=== PATIENT | female | born 1995 | race Caucasian/White ===

== ENCOUNTER → 2017-07-05 16:52 | Observation (INO) ==
[2017-07-05 13:51] LABS: Bilirubin,Urine Negative (Negative); Blood,Urine Negative (Negative); Clarity,Urine Cloudy (Clear); Color,Urine Yellow (Yellow); Glucose,Urine (UA) Normal (Normal); Ketones,Urine Negative (Negative); Leukocyte Esterase,Urine Moderate (Negative); Nitrite,Urine Negative (Negative); PH,Urine 6.5 pH Units (5.0-8.0); Protein,Urine Negative (Neg-Trace); Specific Gravity,Urine > 1.030 (1.010-1.025); Urobilinogen,Urine Normal (Normal)
[2017-07-05 13:52] LABS: Bacteria,Urine None Seen per hpf (None-Few); Hyaline Casts,Urine None Seen per lpf (None-Few); Squamous Epithelial Cell,Urine Many per lpf (None-Few); WBC,Urine 15-30 per hpf (0-3)
--- NOTE | 2017-07-05 14:24 | OB/GYN Progress Note ---
Date of Encounter: 07/05/17 Time of Encounter: 14:18 - Assessment and Plan (1) 30 weeks gestation of Current Visit: Yes Status: Acute (2) Vaginal irritation Current Visit: Yes Status: Acute Await vaginosis panel and GC cultures. Anticipate discharge home with treatment. Precautions given. (3) Pain of round ligament affecting , antepartum Current Visit: Yes Status: Acute Comfort measures and discharge home with precautions. Subjective - Subjective Interval history: 22 year-old presenting at 30 weeks with c/o intermittent, bilateral, sharp , lower abdominal pains and vaginal irritation. She was treated for a yeast infection 2 weeks ago with diflucan that did not resolve her symptoms. She denies contractions, leaking, bleeding, urinary sx, or other complaints. Good FM. Antepartum ROS: movement normal, no loss of fluid, no vaginal bleeding, no contractions Objective - Vital Signs Vital Signs: Vital Signs Temp Resp 07/05/17 13:48 98.1 F 14 Intake and Output 07/04/17 07/05/17 07/05/17 23:59 07:59 15:59 Other: Weight 73.8 kg Patient Weight 07/05/17 23:59 Weight 73.8 kg - Exam FHR: category 1 FHR comments: NST reactive Auscultation: bilateral: normal Abdomen: Present: soft, gravid, tenderness (tenderness in bilateral lower quadrants) Uterus: Present: normal. Absent: tenderness - Labs Labs: Abnormal lab results Urine Clarity Cloudy (Clear) A 07/05/17 13:38 Ur Specific [place] > 1.030 (1.010-1.025) H 07/05/17 13:38 Ur Leukocyte Esterase Moderate (Negative) H 07/05/17 13:38 Urine Microscopic RBC 5-15 per hpf (0-3) H 07/05/17 13:38 Urine Microscopic WBC 15-30 per hpf (0-3) H 07/05/17 13:38 Ur Squamous Epith Cells Many per lpf (None-Few) H 07/05/17 13:38 Ur Culture Indicated? NO. (NO) A 07/05/17 13:38
[2017-07-05 14:26] LABS: Amphetamine Screen,Urine Negative ng/mL (Cutoff=1000); Barbiturate Screen,Urine Negative ng/mL (Cutoff=200); Benzodiazepines Screen,Urine Negative ng/mL (Cutoff=200); Cannabinoid Screen,Urine Negative ng/mL (Cutoff = 50); Cocaine Screen,Urine Negative ng/mL (Cutoff= 300); Opiate Screen,Urine Negative ng/mL (Cutoff=300); Phencyclidine Screen,Urine Negative ng/mL (Cutoff=25)
[2017-07-05 15:20] LABS: Candida DNA Not Detected (Not Detect); Gardnerella DNA Not Detected (Not Detect); Trichomonas DNA Not Detected (Not Detect)
== END | disposition home or self-care (01) ==
LOC: 1NENULAB
PROVIDERS: ADMIT Obstetrics & Gynecology; ATTEND Obstetrics & Gynecology

== ENCOUNTER → 2017-09-08 05:00 | Observation (INO) ==
[2017-09-08 00:50] LABS: Bilirubin,Urine Negative (Negative); Blood,Urine Negative (Negative); Clarity,Urine Clear (Clear); Color,Urine Yellow (Yellow); Glucose,Urine (UA) Normal (Normal); Ketones,Urine Trace mg/dL (Negative); Leukocyte Esterase,Urine Trace (Negative); Nitrite,Urine Negative (Negative); Protein,Urine Negative (Neg-Trace); Specific Gravity,Urine 1.026 (1.010-1.025); Urobilinogen,Urine Normal (Normal)
[2017-09-08 00:56] LABS: Bacteria,Urine None Seen per hpf (None-Few); Hyaline Casts,Urine None Seen per lpf (None-Few); RBC,Urine 15-30 per hpf (0-3); Squamous Epithelial Cell,Urine Many per lpf (None-Few)
[2017-09-08 00:58] LABS: Amphetamine Screen,Urine Negative ng/mL (Cutoff=1000); Barbiturate Screen,Urine Negative ng/mL (Cutoff=200); Benzodiazepines Screen,Urine Negative ng/mL (Cutoff=200); Cannabinoid Screen,Urine Negative ng/mL (Cutoff = 50); Cocaine Screen,Urine Negative ng/mL (Cutoff= 300); Opiate Screen,Urine Negative ng/mL (Cutoff=300); Phencyclidine Screen,Urine Negative ng/mL (Cutoff=25)
--- NOTE | 2017-09-08 06:58 | OB/GYN Progress Note ---
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 Discharged home with labor precautions Follow up with primary OB within 1 week and PRN (2) NST (non-stress test) reactive Status: Acute Subjective - Subjective Principal diagnosis: Labor Evaluation Antepartum ROS: movement normal, contractions, no loss of fluid, no vaginal bleeding Objective - Vital Signs Vital Signs: Intake and Output 09/07/17 09/07/17 09/08/17 15:59 23:59 07:59 Other: Weight 75.2 kg Patient Weight 09/08/17 23:59 Weight 75.2 kg - Exam FHR: auscultation normal, category 1 (Baseline 130) - Labs Labs: Abnormal lab results Ur Specific [place] 1.026 (1.010-1.025) H 09/08/17 00:20 Urine Ketones Trace mg/dL (Negative) H 09/08/17 00:20 Ur Leukocyte Esterase Trace (Negative) H 09/08/17 00:20 Urine Microscopic RBC 15-30 per hpf (0-3) H 09/08/17 00:20 Urine Microscopic WBC 3-5 per hpf (0-3) H 09/08/17 00:20 Ur Squamous Epith Cells Many per lpf (None-Few) H 09/08/17 00:20 Ur Culture Indicated? NO. (NO) A 09/08/17 00:20
== END | disposition home or self-care (01) ==
LOC: 1NENULAB
PROVIDERS: ADMIT Advanced Practice Midwife; ATTEND Advanced Practice Midwife

== ENCOUNTER 2021-10-17 04:43 | Inpatient (IN) ==
[~2021-10-17 04:43] MED LIST: Famotidine 20 MG/2 ML VIAL IVP PRN; Metoclopramide 10 MG/2 ML VIAL IVP PRN; Naloxone 0.4 MG/ML INJ IVP PRN; Ondansetron 4 MG/2 ML VIAL IVP PRN
[2021-10-17] MEDS ORDERED: Penicillin G Potassium 5,000,000 UNIT in 0.9 % Sodium Chloride Mini Bag 100 ML IVPB ONE (04:44)
[2021-10-17] MEDS ORDERED: Ringers Solution, Lactated 1,000 ML IVC SCH (04:45)
[2021-10-17 05:58] LABS: Basophils # 0.1 K/mcL (0.0-0.2); Basophils % 0.7 %; Eosinophils # 0.3 K/mcL (0.0-0.6); Eosinophils % 1.9 %; Hemoglobin 10.8 g/dL (11.5-15.4); Immature Granulocytes % 2.3 % (0-4); Lymphocytes # 1.9 K/mcL (0.6-4.6); Lymphocytes % 13.1 %; Mean Corpuscular HGB Conc 31.8 g/dL (31.6-35.5); Mean Corpuscular Hemoglobin 27.1 pg (28.0-33.3); Mean Corpuscular Volume 85.2 fL (83.0-100.0); Mean Platelet Volume 9.1 fL (9.4-12.4); Monocytes # 1.1 K/mcL (0.0-1.3); Monocytes % 7.4 %; Neutrophils # 10.9 K/mcL (1.6-8.9); Platelet Count 273 K/mcL (140-400); Red Blood Count 3.99 M/mcL (3.82-4.97); Red Cell Distribution Width 12.4 % (11.5-14.5); Segmented Neutrophils % 74.6 %; White Blood Count 14.5 K/mcL (4.3-11.1)
[2021-10-17] MEDS ORDERED: EPHEDrine 50 MG/ML VIAL IVP PRN (06:42)
[2021-10-17] MEDS ORDERED: Epidural Premix (fent/bupiv) 110 ML EP SCH (06:45)
[2021-10-17 08:42] LABS: Amphetamine Screen,Urine Negative ng/mL (Cutoff=1000); Barbiturate Screen,Urine Negative ng/mL (Cutoff=200); Benzodiazepines Screen,Urine Negative ng/mL (Cutoff=200); Cannabinoid Screen,Urine Negative ng/mL (Cutoff = 50); Cocaine Screen,Urine Negative ng/mL (Cutoff= 300); Opiate Screen,Urine Negative ng/mL (Cutoff=300); Phencyclidine Screen,Urine Negative ng/mL (Cutoff=25)
[2021-10-17] MEDS: Penicillin G Potassium 2,500,000 UNIT/105 ML MLS IVPB SCH ×3 (09:41→18:31)
[2021-10-17] MEDS ORDERED: Oxytocin 30 UNIT/503 ML BAG IVC SCH ×2 (11:00→20:33)
[2021-10-17] MEDS: *HR* Nalbuphine 10 MG/ML AMPUL IV PRN ×2 (14:15→16:55)
[2021-10-17] MEDS ORDERED: Lanolin 7 G OINT...G. TP PRN (20:33)
[2021-10-17] MEDS ORDERED: OXYTOCIN/RINGERS LACTATE 10 UNIT/166.6 ML BAG IVC ONE (20:33)
[2021-10-17] MEDS ORDERED: Benzocaine/Menthol 56 GM AEROSOL SPRAY TP PRN (20:33)
[2021-10-17] MEDS: Acetaminophen 325 MG TABLET PO SCH (20:55)
[2021-10-18] MEDS: Ibuprofen 600 MG TABLET PO SCH ×3 (00:30→19:19)
[2021-10-18] MEDS: Acetaminophen 325 MG TABLET PO SCH ×2 (05:54→19:18)
[2021-10-18] MEDS: Prenatal Vit/FA 1 EACH TABLET PO SCH (09:20)
[2021-10-18 21:20] VITALS: O2SAT 98
[2021-10-19] MEDS: Ibuprofen 600 MG TABLET PO SCH ×2 (02:01→08:57)
[2021-10-19] MEDS: Acetaminophen 325 MG TABLET PO SCH ×3 (02:02→08:57)
[2021-10-19 07:05] VITALS: BP 102/68; PULSE 76; TEMP 98.3
[2021-10-19] MEDS: Prenatal Vit/FA 1 EACH TABLET PO SCH (08:57)
== END 2021-10-19 13:45 | disposition home or self-care (01) | DRG 560 ==
LOC: 1NENULAB → 1NENUOBS 23:30
PROVIDERS: ADMIT Obstetrics & Gynecology; ATTEND Obstetrics & Gynecology